=== PATIENT | male | born 1970 | race Hispanic/Latino ===

== ENCOUNTER → 2021-11-21 | Outpatient (CLI) | payer OTHER | END | disposition home or self-care (01) | LOC: RAH 11:46 | PROVIDERS: ATTEND Internal Medicine | DX: M17.12 Unilateral primary osteoarthritis, left knee (principal); M89.8X6 Other specified disorders of bone, lower leg; M21.962 Unspecified acquired deformity of left lower leg; M79.89 Other specified soft tissue disorders; I70.8 Atherosclerosis of other arteries; Z98.890 Other specified postprocedural states | CPT/HCPCS: 73562; 73590 ==

== ENCOUNTER → 2024-06-02 | Outpatient (CLI) | payer OTHER | END | disposition home or self-care (01) | LOC: RAH 16:19 | PROVIDERS: ATTEND Internal Medicine | DX: M89.8X6 Other specified disorders of bone, lower leg (principal); M21.962 Unspecified acquired deformity of left lower leg; M79.605 Pain in left leg; R29.6 Repeated falls; R60.0 Localized edema | CPT/HCPCS: 73590 ==

== ENCOUNTER → 2024-06-03 | Outpatient (CLI) | payer OTHER | END | disposition home or self-care (01) | LOC: RAH 12:58 | PROVIDERS: ATTEND Internal Medicine | DX: R60.0 Localized edema (principal); M79.605 Pain in left leg | CPT/HCPCS: 93971 ==